=== PATIENT | female | born 1940 | race Caucasian/White ===

== ENCOUNTER 2017-11-30 09:49 | Emergency (ER) | payer OTHER ==
[2017-11-30 12:03] VITALS: BP 127/75
--- NOTE | 2017-11-30 12:27 | CT Report ---
Procedure Date: 11/30/2017 Accession Number: [id number] / [id number] Procedure: CT - Head W/O CPT Code: FULL RESULT: EXAM: CT HEAD EXAM DATE: 11/30/2017 12:12 PM. CLINICAL HISTORY: Acute right occipital headache. COMPARISON: None. TECHNIQUE: Multiaxial CT images were obtained from the foramen magnum to the vertex. Reformats: Coronal. IV contrast: None. In accordance with CT protocol optimization, one or more of the following dose reduction techniques were utilized for this exam: automated exposure control, adjustment of mA and/or KV based on patient size, or use of iterative reconstructive technique. FINDINGS: Parenchyma: No intraparenchymal hemorrhage. No evidence of mass, midline shift, or CT findings of infarction. Blackburn-white differentiation is distinct. Extraaxial Spaces: Normal for age. No subdural or epidural collections identified. Ventricles: Normal in size and position. Sinuses and Orbits: Imaged paranasal sinuses, orbits, and mastoids show no significant abnormality. Bones: No evidence of fracture or calvarial defect. Other: None. IMPRESSION: Normal head CT. RADIA
--- NOTE | 2017-11-30 12:44 | ED Physician Documentation ---
PD HPI HEADACHE - Stated complaint Stated Complaint: BK HEAD PX - Chief complaint Chief Complaint: Neuro - History obtained from History obtained from: Patient - History of Present Illness Timing - onset: Yesterday Timing - details: Still present Worst headache ever?: Worst headache ever? (No) Location: Back, Right Quality: Throbbing Associated symptoms: No: Fever, Nausea, Vomiting, Weakness, Numbness, Vision changes Improved by: Meds (Advil) Similar symptoms before: Has not had sx before - Treatment prior to arrival Treatment prior to arrival: Transient improvement with Advil. - Additional information Additional information: The patient is a 77-year-old female who presents with headache that is centered mostly in the right occipital/posterior auriicular region, and radiates to the vertex. Her headache started yesterday, and persists today. She describes it as throbbing. She gets temporary relief with Advil. She denies any traumatic injury. She denies visual changes, nausea, vomiting, or fever. He denies history of similar symptoms in the past. She was advised by her primary physician by telephone to come to the emergency department for a head CT. Review of Systems Constitutional: reports: Myalgias (Neck discomfort.). denies: Fever Eyes: denies: Decreased vision, Photophobia Ears: denies: Ear pain Nose: denies: Congestion Throat: denies: Sore throat Cardiac: denies: Chest pain / pressure Respiratory: denies: Dyspnea, Cough GI: denies: Abdominal Pain, Nausea, Vomiting : denies: Dysuria Skin: denies: Rash Musculoskeletal: reports: Neck pain (Right sided neck discomfort.) Neurologic: reports: Headache (Occipital, right post-auricular, radiating to vertex.). denies: Focal weakness, Numbness PD PAST MEDICAL HISTORY - Past Medical History Past Medical History: Yes Cardiovascular: Hypertension, Other Endocrine/Autoimmune: None Musculoskeletal: Other Other Past Medical History: Arthritis - Past Surgical History Past Surgical History: Yes General: Appendectomy /EDUCATIONAL PROGRAM ASSISTANT: Hysterectomy Cardiovascular: Pacemaker HEENT: Tonsil/Adenoidectomy - Present Medications Home Medications: Ambulatory Orders Medication Instructions Recorded Confirmed Aspirin 11/30/17 Quinapril HCl 11/30/17 Vit B Complx C/Folic Acid/Zinc 11/30/17 [Renaplex Tablet] hydroCHLOROthiazide 11/30/17 [Hydrochlorothiazide] - Allergies Allergies/Adverse Reactions: Allergies Allergy/AdvReac Type Severity Reaction Status Date / Time Anesthetics - Amide Type Allergy Nausea Verified 11/30/17 10:04 Anesthetics - Silvia Type- Allergy Nausea Verified 11/30/17 10:04 Parabens - Social History Does the pt smoke?: No Smoking Status: Never smoker Does the pt drink ETOH?: Yes ETOH Use: Wine Does the pt have substance abuse?: No - Immunizations Immunizations are current?: Yes PD ED PE NORMAL - Vitals Vital signs reviewed: Yes (Initially hypertension) - General General: Alert and oriented X 3, Well developed/nourished - HEENT HEENT: Atraumatic, PERRL, EOMI, Ears normal, Pharynx benign, Other (Fundi with sharp disc margins, without papilledema.) - Neck Neck: Supple, no meningeal sign, No bony TTP, No adenopathy, Other (There is mild tenderness to palpation in the right paracervical musculature.) - Cardiac Cardiac: RRR, No murmur - Respiratory Respiratory: No respiratory distress, Clear bilaterally - Abdomen Abdomen: Soft, Non tender - Back Back: No CVA TTP, No spinal TTP - Derm Derm: No rash - Extremities Extremities: No edema, No calf tenderness / cord - Neuro Neuro: Alert and oriented X 3, rivet sorter 2-12 intact, No motor deficit, No sensory deficit, Normal speech Results - Vitals Vitals: Oxygen O2 Source Room air - Rads (name of study) Head CT Radiology: Prelim report reviewed, EMP read contemporaneously, See rad report ( Normal head CT.) PD MEDICAL DECISION MAKING - ED course Complexity details: reviewed results, re-evaluated patient, considered differential, d/w patient, d/w family ED course: The patient's presentation is most consistent with tension headache. Head CT is normal, with no evidence of intracranial hemorrhage. Her presentation does not suggest meningitis, temporal arteritis, or pseudotumor cerebri. I discussed with the patient and her daughter symptomatic treatment, outpatient follow-up, as well as potentially worrisome signs or symptoms that should prompt reevaluation in the emergency department. - Sepsis Event Vital Signs: Oxygen O2 Source Room air Departure - Departure Disposition: 01 Home, Self Care Clinical Impression: Headache Qualifiers: Headache type: unspecified Headache chronicity pattern: acute headache Intractability: not intractable Qualified Code(s): R51 - Headache Condition: Stable Instructions: ED Headache Tension Comments: Continue to use ibuprofen as needed for recurrent headache. Follow up with your primary physician. Call to schedule appointment. Return to the emergency department if you develop increasing headache, fever, persistent vomiting, or otherwise worsening symptoms. Discharge Date/Time: 11/30/17 12:50
== END 2017-11-30 12:50 | disposition home or self-care (01) ==
LOC: ED 09:49
DX: R51 Headache (principal); I10 Essential (primary) hypertension; Z95.0 Presence of cardiac pacemaker; Z79.82 Long term (current) use of aspirin
CPT/HCPCS: 70450; 99283; 99284